=== PATIENT | female | born 1970 | race Caucasian/White ===

== ENCOUNTER → 2017-07-01 | Outpatient (CLI) | payer OTHER ==
[~2017-07-01] MED LIST: FLUC150T PO; ZYRUNK
--- NOTE | 2017-07-01 10:44 | DIAGNOSTIC IMAGING REPORT ---
THORACIC SPINE 3 VIEWS, LUMBAR SPINE 5 VIEWS HISTORY: M54.9 Chronic back [id number] COMPARISON: None. FINDINGS: There is no fracture. No subluxation. Moderate dextroscoliosis of the thoracic spine. Mild disc space narrowing and endplate osteophytes seen within the mid to lower thoracic spine. Paraspinal soft tissues are unremarkable. Mild facet degenerative changes at L4-L5 and L5-S1. Moderate disc space narrowing L5-S1 with endplate osteophytes. Remaining disc spaces of the lumbar spine are preserved. IMPRESSION: 1. No fractures or subluxation within the thoracic or lumbar spine. 2. Moderate dextroscoliosis of the thoracic spine. 3. Mild degenerative disc disease within the mid to lower thoracic spine. 4. Moderate degenerative disc disease at L5-S1. Electronically signed by: Jose Ramon Quinones M.D. 07/01/2017 10:42 AM Dictated Date/Time: 07/01/2017 10:40 AM
--- NOTE | 2017-07-01 10:44 | DIAGNOSTIC IMAGING REPORT ---
THORACIC SPINE 3 VIEWS, LUMBAR SPINE 5 VIEWS HISTORY: M54.9 Chronic back [id number] COMPARISON: None. FINDINGS: There is no fracture. No subluxation. Moderate dextroscoliosis of the thoracic spine. Mild disc space narrowing and endplate osteophytes seen within the mid to lower thoracic spine. Paraspinal soft tissues are unremarkable. Mild facet degenerative changes at L4-L5 and L5-S1. Moderate disc space narrowing L5-S1 with endplate osteophytes. Remaining disc spaces of the lumbar spine are preserved. IMPRESSION: 1. No fractures or subluxation within the thoracic or lumbar spine. 2. Moderate dextroscoliosis of the thoracic spine. 3. Mild degenerative disc disease within the mid to lower thoracic spine. 4. Moderate degenerative disc disease at L5-S1. Electronically signed by: Jose Ramon Quinones M.D. 07/01/2017 10:42 AM Dictated Date/Time: 07/01/2017 10:40 AM
== END | disposition home or self-care (01) ==
LOC: C.RAD1850 10:22
PROVIDERS: ATTEND Internal Medicine
DX: M41.34 Thoracogenic scoliosis, thoracic region (principal); M51.37 Other intervertebral disc degeneration, lumbosacral region

== ENCOUNTER → 2017-07-01 | Outpatient (CLI) | payer OTHER ==
[2017-07-01 12:54] LABS: ALT/SGPT 13 U/L (12-78); AST/SGOT 12 U/L (15-37); BLOOD UREA NITROGEN 12 mg/dl (7-18); BUN/CREATININE RATIO 15.2 (10-20); CALCIUM 8.5 mg/dl (8.5-10.1); CARBON DIOXIDE 24 mmol/L (21-32); CHLORIDE 109 mmol/L (98-107); CREATININE 0.77 mg/dl (0.60-1.20); GLUCOSE 68 mg/dl (70-99); SODIUM 140 mmol/L (136-145)
[2017-07-01 12:58] LABS: BASO % 0.6 %; BASO ABS # 0.04 K/uL (0-0.2); COMPLETE YES; EOS % 8.6 %; HEMATOCRIT 40.6 % (37-47); IG% 0.2 %; LYMPH % 29.6 %; LYMPH ABS # 1.97 K/uL (1.2-3.4); MEAN CELL VOLUME 94.2 fL (80-100); MEAN CORPUSCULAR HEMOGLOBIN 32.5 pg (25-34); MEAN CORPUSCULAR HGB CONC 34.5 g/dl (32-36); MONO % 9.6 %; NEUT % 51.4 %; PLATELET COUNT 185 K/uL (130-400); RED BLOOD COUNT 4.31 M/uL (4.2-5.4); WHITE BLOOD COUNT 6.65 K/uL (4.8-10.8)
[2017-07-01 13:05] LABS: ALB/GLOB RATIO 1.2 (0.9-2); ALKALINE PHOSPHATASE 63 U/L (45-117)
== END | disposition home or self-care (01) ==
LOC: C.LABBFT 08:42
PROVIDERS: ATTEND Internal Medicine
DX: E04.1 Nontoxic single thyroid nodule (principal)

== ENCOUNTER → 2017-07-28 | Outpatient (CLI) | payer OTHER ==
--- NOTE | 2017-07-28 11:00 | DIAGNOSTIC IMAGING REPORT ---
L RIBS UNILATERAL WITH PA CHEST CLINICAL HISTORY: 46 years-old Female presenting with R07.81 Rib [id number]. TECHNIQUE: Frontal and oblique views of the left ribs were obtained as well as PA view of the chest. COMPARISON: None. FINDINGS: Cardiomediastinal silhouette normal. Lungs and pleural spaces clear. No displaced rib fracture. Dextroscoliotic curvature of the mid thoracic spine centered at T7-8. Upper abdomen normal. IMPRESSION: 1. No displaced left rib fracture. 2. No acute cardiopulmonary disease. Electronically signed by: Temo Foley M.D. 07/28/2017 10:59 AM Dictated Date/Time: 07/28/2017 10:57 AM
== END | disposition home or self-care (01) ==
LOC: C.RAD1850 10:41
PROVIDERS: ATTEND Internal Medicine
DX: R07.81 Pleurodynia (principal)

== ENCOUNTER → 2018-04-19 | Outpatient (CLI) | payer OTHER ==
--- NOTE | 2018-04-19 13:39 | MAMMOGRAPHY REPORT ---
BILATERAL DIGITAL SCREENING MAMMOGRAM TOMOSYNTHESIS WITH CAD: 04/19/2018 CLINICAL HISTORY: Routine screening examination. TECHNIQUE: The study was acquired using full field digital technology and interpreted from soft copy. Breast tomosynthesis in addition to standard 2D mammography was performed. Current study was also ev aluated with a Computer Aided Detection (CAD) system. COMPARISON: Comparison is made to exams dated: 04/23/2016 mammogram, 10/16/2015 mammogram, [facility], 03/28/2015 ultrasound, and 06/18/2015 localization - [facility]. BREAST COMPOSITION: The tissue of both breasts is extremely dense, which lowers the sensitivity of ma mmography. FINDINGS: There are multiple bilateral groupings of faint amorphous calcifications in both breasts, w hich appears stable dating back to at least 2014, most likely benign. No obvious new mass, asymmetry, architectural distortion or new cluster of microcalcifications is seen. IMPRESSION: ACR BI-RADS CATEGORY 1: NEGATIVE There is no mammographic evidence of malignancy. A 1 year screening mammogram is recommended.( [id number]) The patient will receive written notification of the results. Some breast cancers are not detected with mammography. A negative mammographic report should not sam y biopsy if a clinically suggestive mass is present. Azucena Encinas M.D. ay/:04/19/2018 08:28:06 Plant Specialist: RT Oma(Nicolas)([place]), [facility] letter sent: Normal 1/2 BI-RADS Code: ACR BI-RADS Category 1: Negative
== END | disposition home or self-care (01) ==
LOC: C.MAMM 07:11
PROVIDERS: ATTEND Internal Medicine
DX: Z12.31 Encounter for screening mammogram for malignant neoplasm of breast (principal)